=== PATIENT | male | born 1980 | race African-American/Black ===

== ENCOUNTER 2019-02-21 15:40 | Emergency (ER) | payer SELFPAY ==
[2019-02-21] MEDS ORDERED: NS 0.9% 1000 ML** 1,000 ML IV ONE ×2 (18:21→20:27)
[2019-02-21 18:43] LABS: ABS Basophils 0.1 10^3/ul (0-0.2); ABS Lymphocytes 1.1 10^3/ul (1.0-4.8); ABS Monocytes 1.3 10^3/ul (0-0.8); ABS Neutrophils 12.6 10^3/ul (1.5-7.7); Eosinophil % 0.3 %; Hematocrit 42 % (42-52); Hemoglobin 14.8 g/dL (14.0-18.0); Lymphocyte % 7.1 %; Mean Corpuscular HGB Conc 35 g/dL (31-36); Mean Corpuscular Hemoglobin 30 pg (27-31); Mean Corpuscular Volume 85 fL (80-94); Mean Platelet Volume 8.5 fL (7.4-10.4); Platelet Count 182 10^3/uL (150-450); Red Blood Count 4.91 10^6 /uL (4.18-5.48); Red Cell Distribution Width 14 % (10-15)
[2019-02-21] MEDS ORDERED: Ketorolac INJ* 30 MG/ML 1 ML VIAL IV PUSH ONE (18:43)
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
[2019-02-21] MEDS ORDERED: Vancomycin(*) 1,250 MG in NS 0.9% 250 ML* 250 ML IVPB SCH (19:00)
[2019-02-21] MEDS ORDERED: Vancomycin(*) 1,250 MG in NS 0.9% 250 ML* 250 ML IVPB ONE (19:00)
[2019-02-21 19:02] LABS: Albumin 4.3 g/dL (3.2-5.2); Albumin/Globulin Ratio 1.3 (1-3); BUN/Creatinine Ratio 13.8 (8-20); C Reactive Protein 78.48 mg/L (<8.01); Calcium 9.5 mg/dL (8.6-10.3); EGFR African American 118.8 (>60); EGFR Non-African American 98.2 (>60); Globulin 3.4 g/dL (2-4); Potassium 3.7 mmol/L (3.5-5.0); Total Bilirubin 0.7 mg/dL (0.2-1.0); Total Protein 7.7 g/dL (6.4-8.9)
[2019-02-21] MEDS ORDERED: Morphine 4 MG/ML VIAL (1 ml) 4 MG/ML VIAL IV ONE (20:27)
[2019-02-21 21:31] VITALS: BP 137/78
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
== END 2019-02-21 21:31 | disposition short-term general hospital (02) ==
LOC: ED 15:40
DX: L08.9 Local infection of the skin and subcutaneous tissue, unspecified (principal); R50.9 Fever, unspecified; R21 Rash and other nonspecific skin eruption; F17.210 Nicotine dependence, cigarettes, uncomplicated
CPT/HCPCS: 36415; 73140; 80053; 83605; 85025; 86140; 87040; 96365; 96375; 99283; J1885; J2270; J3370